=== PATIENT | female | born 1950 | race Caucasian/White ===

== ENCOUNTER 2017-01-30 04:25 | Inpatient (IN) ==
[2017-01-30] MEDS ORDERED: fentaNYL 100 MCG/2 ML VIAL ONE (05:00)
[2017-01-30] MEDS ORDERED: MIDAZOLAM 2 MG/2 ML VIAL ONE (05:00)
[2017-01-30] MEDS ORDERED: HEPARIN/NACL 0.9% 2 UNITS/ML 1,000 ML IV ONE (05:00)
[2017-01-30] MEDS ORDERED: LIDOCAINE 1% 20 ML VIAL ONE (05:00)
[2017-01-30] MEDS ORDERED: BIVALIRUDIN 250 MG VIAL IV ONE (05:31)
[2017-01-30] MEDS ORDERED: ACETAMINOPHEN 325 MG TABLET PO PRN (06:08)
[2017-01-30] MEDS ORDERED: MORPHINE 2 MG/1 ML SYRINGE IV PRN (06:08)
[2017-01-30] MEDS ORDERED: ZALEPLON 5 MG CAPSULE PO PRN (06:08)
[2017-01-30] MEDS ORDERED: NITROGLYCERIN SL 0.4 MG TABLET SL PRN (06:08)
[2017-01-30] MEDS ORDERED: SODIUM CHLORIDE 0.45% 1,000 ML IV SCH (06:30)
[2017-01-30] MEDS: ONDANSETRON 4 MG/2 ML VIAL IV PRN ×2 (06:53→12:30)
[2017-01-30 07:49] LABS: Basophils # 0.1 10*3/uL (0.0-0.2); Basophils % 0.2 % (0.0-0.8); Hematocrit 44.8 VOL% (35.7-47.0); Hemoglobin 15.2 GM/DL (12.0-16.0); Immature Granulocytes % 0.7 %; Immature Granulocytes Absolute 0.15 #; Lymphocytes # 1.2 10*3/uL (1.4-4.0); Lymphocytes % 5.8 % (21.3-54.2); Mean Corpuscular HGB Conc 33.9 GM/DL (32-36); Mean Corpuscular Hemoglobin 31 PG (27-34); Mean Platelet Volume 11.7 FL (9.6-12.0); Monocytes % 4.7 % (1.7-12.7); Neutrophils # 18.5 10*3/uL (1.4-7.4); Neutrophils % 88.6 % (38.7-73.9); Platelet Count 257 T/CUMM (130-400); Red Blood Count 4.98 MC/CUMM (3.8-5.5); Red Cell Distribution Width 13.3 % (9.3-17.3); White Blood Count 20.8 T/CUMM (4-12)
[2017-01-30 08:14] LABS: Band Neutrophils 1 % (0-10); Eosinophils 1 % (0-10); Giant Platelets Few; Hypochromasia 1+; Lymphocytes 6 % (20-55); Ovalocytes Slight; Platelet Estimate Adequate; Segmented Neutrophils 89 % (50-85); Total Cells Counted 100
[2017-01-30 08:21] LABS: Calcium 8.4 MG/DL (8.5-10.1); Osmolality,Calculated 279.5 MOS/KG (273-304); Potassium 4.2 MMOL/L (3.5-5.1)
[2017-01-30] MEDS: TICAGRELOR 90 MG TABLET PO SCH ×2 (08:51→20:12)
[2017-01-30] MEDS: ASPIRIN EC 81 MG TABLET PO SCH (08:51)
[2017-01-30] MEDS: PANTOPRAZOLE 40 MG TABLET PO SCH (08:51)
[2017-01-30] MEDS: METOPROLOL TARTRATE 25 MG TABLET PO SCH ×2 (08:51→20:12)
[2017-01-30] MEDS: ACETAMINOPHEN/CODEINE 300-30 MG TABLET PO PRN (08:52)
[2017-01-30 09:15] LABS: CKMB % 5.8 %
[2017-01-30 09:23] LABS: Risk Ratio 4.75; Troponin I Only 96.7 NG/ML (0.00-0.045)
[2017-01-30] MEDS ORDERED: ALPRAZolam 0.25 MG TABLET PO PRN (10:03)
[2017-01-30] MEDS ORDERED: FUROSEMIDE 40 MG/4 ML VIAL ONE (12:33)
[2017-01-30] MEDS ORDERED: FUROSEMIDE 40 MG/4 ML VIAL IV ONE ×2 (12:34→12:55)
[2017-01-30] MEDS ORDERED: ALBUTEROL/IPRATROPIUM 3 ML NEB RESP TX PRN (12:59)
[2017-01-30 13:25] LABS: ABG Base Excess -2.5 MMOL/L (-2.5-2.5); ABG HCO3 22.1 MMOL/L (20-26); ABG Oxygen Saturation 86.1 % (95-100); ABG PCO2 39.2 MM HG (35-48); ABG PH 7.368 (7.35-7.45); ABG PO2 52.9 MM HG (80-95); Allen Test Positive; Pt O2 Delivery Device Venturi Mask
[2017-01-30 16:32] LABS: CKMB % 7.6 %
[2017-01-30] MEDS: LEVOFLOXACIN 500 MG TABLET PO SCH (19:45)
[2017-01-30] MEDS: ROSUVASTATIN 20 MG TABLET PO SCH (20:12)
[2017-01-30] MEDS: ENOXAPARIN 40 MG/0.4 ML SYRINGE SUBCUT SCH (21:19)
[2017-01-31 03:24] LABS: ABG Base Excess 3.2 MMOL/L (-2.5-2.5); ABG HCO3 25.5 MMOL/L (20-26); ABG Oxygen Saturation 94.5 % (95-100); ABG PCO2 32.3 MM HG (35-48); ABG PH 7.515 (7.35-7.45); ABG PO2 63.8 MM HG (80-95); ABG TCO2 26.5 MMOL/L (23-27); Allen Test Positive
[2017-01-31 05:29] LABS: Basophils % 0.2 % (0.0-0.8); Eosinophils % 0.2 % (0.00-10.9); Hemoglobin 14.4 GM/DL (12.0-16.0); Immature Granulocytes Absolute 0.14 #; Lymphocytes # 1.7 10*3/uL (1.4-4.0); Lymphocytes % 12.6 % (21.3-54.2); Mean Corpuscular HGB Conc 34.3 GM/DL (32-36); Mean Corpuscular Hemoglobin 30 PG (27-34); Mean Corpuscular Volume 87.5 FL (87-102); Mean Platelet Volume 11.8 FL (9.6-12.0); Monocytes # 0.9 10*3/uL (0.11-0.8); Monocytes % 6.5 % (1.7-12.7); Neutrophils # 10.7 10*3/uL (1.4-7.4); Neutrophils % 79.5 % (38.7-73.9); Platelet Count 235 T/CUMM (130-400); Red Cell Distribution Width 13.4 % (9.3-17.3); White Blood Count 13.4 T/CUMM (4-12)
[2017-01-31 05:49] LABS: Calcium 8.4 MG/DL (8.5-10.1); Osmolality,Calculated 278.5 MOS/KG (273-304)
[2017-01-31 06:09] LABS: CKMB % 3.6 %
[2017-01-31 06:30] LABS: Calcium 8.2 MG/DL (8.5-10.1); Osmolality,Calculated 276.7 MOS/KG (273-304); Potassium 3.9 MMOL/L (3.5-5.1)
[2017-01-31] MEDS: ACETAMINOPHEN/CODEINE 300-30 MG TABLET PO PRN ×2 (07:26→15:17)
[2017-01-31] MEDS: TICAGRELOR 90 MG TABLET PO SCH ×2 (09:16→20:34)
[2017-01-31] MEDS: ASPIRIN EC 81 MG TABLET PO SCH (09:16)
[2017-01-31] MEDS: PANTOPRAZOLE 40 MG TABLET PO SCH (09:16)
[2017-01-31] MEDS: METOPROLOL TARTRATE 25 MG TABLET PO SCH (09:16)
[2017-01-31] MEDS: LEVOFLOXACIN 500 MG TABLET PO SCH (09:16)
[2017-01-31] MEDS: ONDANSETRON 4 MG/2 ML VIAL IV PRN (11:21)
[2017-01-31] MEDS ORDERED: BISACODYL 5 MG TABLET PO PRN (14:37)
[2017-01-31] MEDS ORDERED: LORazepam 0.5 MG TABLET PO PRN (14:39)
[2017-01-31] MEDS ORDERED: FUROSEMIDE 40 MG/4 ML VIAL IV ONE (15:51)
[2017-01-31] MEDS: ENOXAPARIN 40 MG/0.4 ML SYRINGE SUBCUT SCH (20:33)
[2017-01-31] MEDS: ROSUVASTATIN 20 MG TABLET PO SCH (20:34)
[2017-02-01 04:57] LABS: Basophils % 0.3 % (0.0-0.8); Eosinophils # 0.1 10*3/uL (0.0-0.87); Eosinophils % 0.9 % (0.00-10.9); Hemoglobin 12.5 GM/DL (12.0-16.0); Immature Granulocytes % 0.8 %; Immature Granulocytes Absolute 0.09 #; Lymphocytes # 2.3 10*3/uL (1.4-4.0); Lymphocytes % 21.5 % (21.3-54.2); Mean Corpuscular HGB Conc 33.8 GM/DL (32-36); Mean Corpuscular Hemoglobin 30 PG (27-34); Mean Corpuscular Volume 88.5 FL (87-102); Mean Platelet Volume 11.5 FL (9.6-12.0); Monocytes # 1.1 10*3/uL (0.11-0.8); Monocytes % 10.2 % (1.7-12.7); Neutrophils # 7.1 10*3/uL (1.4-7.4); Neutrophils % 66.3 % (38.7-73.9); Platelet Count 196 T/CUMM (130-400); Red Blood Count 4.18 MC/CUMM (3.8-5.5); Red Cell Distribution Width 13.7 % (9.3-17.3); White Blood Count 10.7 T/CUMM (4-12)
[2017-02-01 05:34] LABS: Calcium 8.2 MG/DL (8.5-10.1); Osmolality,Calculated 277.5 MOS/KG (273-304); Potassium 3.4 MMOL/L (3.5-5.1)
[2017-02-01] MEDS: FUROSEMIDE 40 MG TABLET PO SCH (08:14)
[2017-02-01] MEDS: LEVOFLOXACIN 500 MG TABLET PO SCH (08:15)
[2017-02-01] MEDS: TICAGRELOR 90 MG TABLET PO SCH ×2 (08:15→20:56)
[2017-02-01] MEDS: PANTOPRAZOLE 40 MG TABLET PO SCH (08:15)
[2017-02-01] MEDS: ASPIRIN EC 81 MG TABLET PO SCH (08:15)
[2017-02-01] MEDS ORDERED: POTASSIUM CHLORIDE 20 MEQ TABLET PO ONE (09:56)
[2017-02-01] MEDS: ENOXAPARIN 40 MG/0.4 ML SYRINGE SUBCUT SCH (20:55)
[2017-02-01] MEDS: ACETAMINOPHEN/CODEINE 300-30 MG TABLET PO PRN (20:56)
[2017-02-01] MEDS: ROSUVASTATIN 20 MG TABLET PO SCH (20:56)
[2017-02-02 06:21] LABS: Basophils # 0.1 10*3/uL (0.0-0.2); Basophils % 0.5 % (0.0-0.8); Eosinophils # 0.1 10*3/uL (0.0-0.87); Eosinophils % 1.3 % (0.00-10.9); Hematocrit 37.6 VOL% (35.7-47.0); Hemoglobin 12.8 GM/DL (12.0-16.0); Immature Granulocytes % 1.3 %; Immature Granulocytes Absolute 0.14 #; Lymphocytes # 2.6 10*3/uL (1.4-4.0); Lymphocytes % 25.1 % (21.3-54.2); Mean Corpuscular Hemoglobin 30 PG (27-34); Mean Corpuscular Volume 88.9 FL (87-102); Mean Platelet Volume 12.2 FL (9.6-12.0); Monocytes # 1.1 10*3/uL (0.11-0.8); Monocytes % 10.1 % (1.7-12.7); Neutrophils # 6.4 10*3/uL (1.4-7.4); Neutrophils % 61.7 % (38.7-73.9); Platelet Count 224 T/CUMM (130-400); Red Blood Count 4.23 MC/CUMM (3.8-5.5); Red Cell Distribution Width 13.4 % (9.3-17.3); White Blood Count 10.4 T/CUMM (4-12)
[2017-02-02 07:03] LABS: Calcium 8.6 MG/DL (8.5-10.1); Magnesium 1.9 MG/DL (1.8-2.4); Osmolality,Calculated 279.4 MOS/KG (273-304); Potassium 3.5 MMOL/L (3.5-5.1)
[2017-02-02] MEDS: PANTOPRAZOLE 40 MG TABLET PO SCH (08:22)
[2017-02-02] MEDS: FUROSEMIDE 40 MG TABLET PO SCH (08:22)
[2017-02-02] MEDS: TICAGRELOR 90 MG TABLET PO SCH (08:22)
[2017-02-02] MEDS: ASPIRIN EC 81 MG TABLET PO SCH (08:22)
[2017-02-02] MEDS: LEVOFLOXACIN 500 MG TABLET PO SCH (08:22)
[2017-02-02] MEDS ORDERED: POTASSIUM CHLORIDE 10 MEQ TABLET PO SCH (09:00)
[2017-02-02 11:34] VITALS: BP 133/70
== END 2017-02-02 15:53 | disposition home or self-care (01) | DRG 248 ==
LOC: INTOOBSV 04:55 → N.CC 04:55 → OBSVTOIN 04:55 → N.TELES 02-01 14:53
PROVIDERS: ADMIT Internal Medicine Cardiovascular Disease; ATTEND Internal Medicine Cardiovascular Disease
PROC: CLCCHCL (ICD-10-PCS; 2017-01-30 05:45)